=== PATIENT | female | born 1940 | race Caucasian/White ===

== ENCOUNTER 2018-04-27 17:22 | Inpatient (IN) ==
[2018-04-27] MEDS ORDERED: ATIVAN IV ONE (17:32)
[2018-04-27] MEDS ORDERED: NEOSPORIN OINTMENT PACKET TOP ONE (17:32)
[2018-04-27] MEDS ORDERED: HALDOL IV ONE (17:32)
--- NOTE | 2018-04-27 17:57 | Diag Imaging Result Doc PS360 ---
EXAM: CT HEAD W/O CONTRAST INDICATION: AMS, dementia TECHNIQUE: This exam was performed using automated exposure control, adjustment of mA or kV according to patient size, and/or use of iterative reconstruction technique. COMPARISON: 03/31/2018 FINDINGS: There is suggestion of mild to moderate periventricular white matter microangiopathy, stable. There is a small low dense focus at the posterior parietal lobe cortex on the left that can be seen on image 30 of series 2. This is not clearly identified previously. A focal subacute or late acute infarct cannot be excluded. Please correlate clinically. There is no discrete intracranial mass, mass effect, or intracranial hemorrhage. The surrounding soft tissues and bony structures are essentially unremarkable. IMPRESSION: Small focus of low attenuation involving the posterior parietal lobe on the left that is not clearly identified previously and could represent a late acute or subacute focal infarct. Electronically signed by Seven Spivey 04/27/2018 5:55 PM
[2018-04-27 18:23] LABS: ALLEN TEST YES; BE 4.9 mmoll (-3.0-3.0); BLOOD TYPE ARTERIAL; HCO3-(ACT) 28.7 mmoll (20.0-26.0); METHB 1.3 % (0.0-1.5); MODALITY CANNULA; O2(CT) 16.1 mL/dL (15.0-23.0); O2HB 96.3 % (95.0-99.0); PCO2(98.6) 41 mmHg (35-45); PO2(98.6) 127 mmHg (60-100); SAMPLE BLOOD; SAO2 99.3 % (95.0-100.0); THB 11.7 g/dL (11.5-17.4); pH(98.6) 7.46 (7.35-7.45)
[2018-04-27] MEDS ORDERED: APRESOLINE IV ONE (18:40)
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
[2018-04-27 19:11] LABS: BASO# 0.02 X1000 (0.0-0.2); BASO% 0.2 % (0.0-0.8); EOS# 0.14 X1000 (0.0-0.7); EOS% 1.4 % (0.0-10.0); HEMATOCRIT 36.9 % (37.0-47.0); IMM GRAN# 0.02 X1000 (0.0-0.04); IMM GRAN% 0.2 % (0.0-0.5); LYMPH# 2.25 X1000 (1.2-3.4); LYMPH% 21.8 % (20.5-51.1); MCH 28.2 PG (27-31); MCHC 32.5 g/dL (33-37); MCV 86.6 FL (81-99); MONO# 0.72 X1000 (0.11-0.59); MPV 9.6 FL (7.4-10.4); NEUT# 7.17 X1000 (1.4-6.5); NEUT% 69.4 % (42.2-75.2); PLT 237 X1000 (130-400); RBC 4.26 XMIL (4.2-5.4); RDW 14.5 % (11.5-14.5); WBC 10.32 X1000 (4.8-10.8)
[2018-04-27 19:20] LABS: INR 0.96; PROTIME 13.5 Seconds (11.0-16.0)
[2018-04-27 19:21] LABS: PTT 28.1 Seconds (22.3-41.8)
[2018-04-27] MEDS: DUONEB (A & A) INH SCH ×2 (19:30→23:55)
[2018-04-27 19:32] LABS: AGAP 10; ALB/GLOB RATIO 1.2; ALBUMIN 3.4 g/dL (3.5-5.0); ALKALINE PHOSPHATASE 113 U/L (32-104); BUN 11 mg/dL (8-22); CALCIUM 8.5 mg/dL (8.8-10.2); CHLORIDE 104 mmol/L (98-107); CK PROFILE 58 U/L (24-173); COSMO 282; CREATININE 0.7 mg/dL (0.5-0.9); ESTIMATED GFR > 60; GLUCOSE 94 mg/dL (70-104); GOT 21 U/L (10-30); GPT 13 U/L (10-36); MAGNESIUM 1.6 mg/dL (1.5-2.7); POTASSIUM 3.5 mmol/L (3.5-5.1); SODIUM 142 mmol/L (136-145); TCO2 28 mmol/L (25-35); TOTAL BILIRUBIN 0.42 mg/dL (0.20-1.00); TOTAL PROTEIN 6.3 g/dL (6.3-8.3)
--- NOTE | 2018-04-27 19:43 | Diag Imaging Result Doc PS360 ---
EXAM: CHEST-PORTABLE INDICATION: sob TECHNIQUE: One view COMPARISON: 03/31/2018 FINDINGS: There has been interval placement of a left-sided pacemaker in the expected position. There is mild biapical pleural scarring, stable. The lungs are grossly clear. There is no discrete pleural fluid collection or pneumothorax. The cardiomediastinal silhouette and central vasculature are grossly unremarkable. IMPRESSION: No evidence of acute pathology by plain radiograph. Electronically signed by Seven Spivey 04/27/2018 7:41 PM
--- NOTE | 2018-04-27 19:45 | Diag Imaging Result Doc PS360 ---
EXAM: FOOT COMPLETE LEFT INDICATION: injury TECHNIQUE: 3 views COMPARISON: None. FINDINGS: There is no discrete fracture, dislocation, or significant intrinsic osseous lesion. The visualized joint spaces are essentially unremarkable. There is suggestion of mild soft tissue edema at the dorsum of the foot. IMPRESSION: Likely mild soft tissue edema but no evidence of acute osseous abnormality. Electronically signed by Seven Spivey 04/27/2018 7:43 PM
[2018-04-27 19:47] LABS: URINE SOURCE CATH
[2018-04-27 19:49] LABS: BILIRUBIN URINE NEGATIVE (NEGATIVE); BLOOD URINE NEGATIVE (NEGATIVE); COLOR YELLOW; GLUCOSE URINE NEGATIVE (NEGATIVE); KETONE URINE NEGATIVE (NEGATIVE); LEUKOCYTES URINE NEGATIVE (NEGATIVE); NITRITE URINE NEGATIVE (NEGATIVE); PH URINE 6.5; PROTEIN URINE TRACE mg/dL (NEGATIVE); SP GRAVITY URINE 1.019; TURBIDITY URINE CLEAR (CLEAR); UROBILINOGEN URINE NORMAL (NORMAL)
[2018-04-27 19:51] LABS: UR EPITHELIAL CELLS <10 /HPF (<10); URINE BACTERIA NEGATIVE /HPF; URINE RBC <10 /HPF (<10); URINE WBC <10 /HPF (<10)
[2018-04-27 19:54] LABS: URINE CRYSTALS NONE SEEN
[2018-04-27] MEDS ORDERED: CELEXA PO SCH (21:00)
[2018-04-27] MEDS ORDERED: REMERON PO SCH (21:00)
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
[2018-04-27] MEDS: COZAAR PO SCH (23:09)
[2018-04-28] MEDS: DUONEB (A & A) INH SCH ×6 (03:05→23:00)
--- NOTE | 2018-04-28 08:21 | EKG Report ---
Test Performed on : 04/27/2018 7:55:57 PM Test Reason : sob Blood Pressure : / mmHG Vent. Rate : 089 BPM Atrial Rate : 089 BPM P-R Int : 142 ms QRS Dur : 060 ms QT Int : 398 ms P-R-T Axes : 065 -43 -20 degrees QTc Int : 484 ms Sinus rhythm. with occasional ventricular-paced complexes and with frequent premature ventricular com plexes. Left axis deviation Inferior infarct , age undetermined Abnormal ECG When compared with ECG of 03-APR-2018 07:12, Electronic ventricular pacemaker has replaced Sinus rhythm. Vent. rate has increased BY 39 BPM Unconfirmed Result
[2018-04-28] MEDS ORDERED: PATIENT'S OWN MED PO SCH (09:00)
[2018-04-28] MEDS ORDERED: ARICEPT PO SCH (09:00)
[2018-04-28] MEDS ORDERED: LASIX PO SCH (09:00)
[2018-04-28] MEDS ORDERED: KLOR-CON PO SCH (09:00)
--- NOTE | 2018-04-28 09:25 | PROGRESS NOTE ---
DATE: 04/28/2018 SUBJECTIVE: Ms. Wiggins was admitted with altered mental status yesterday. Her vital signs are stable. She has mild COPD, has dementia. There is a possibility of stroke. She has coronary artery disease, has been a smoker, and has a history of COPD. She has been very confused, and there is no one to take care of her at home as the daughter who used to take care of her is sick herself and has been having mental problems. We will try to find fdc placement for her. She was seen by [facility] at home yesterday, and then was transferred to the emergency room. cc: Adal Nguyen MD
[2018-04-28] MEDS: COZAAR PO SCH ×2 (09:47→17:46)
--- NOTE | 2018-04-28 14:28 | CONSULTATION ---
DATE OF CONSULTATION: 04/28/2018 HISTORY: Ms. Wiggins is 77 years old, and there is reported baseline dementia, possibly recent increased confusion and imaging findings raising question of recent cerebral infarction. History from the patient, review of hospital record, and from daughter at the bedside is that she has not had previous stroke diagnosed. She was not aware of any recent sudden focal neurologic deficit. She has felt unsteady with gait and some days seems more confused than others. She has not noticed any sudden vision changes. She has not had headache. She has not had periods of altered awareness or unconsciousness. Daughter reports forgetfulness noticed about 5 years ago when patient moved here from [place]. Patient came here to take care of the patient's mother who was dealing with dementia. Mother is still alive in her mid 90s with dementia. There is possible other family history of dementia in several female relatives. There is not history of significant ethanol use or ethanol abuse. There is not history of illicit drug use. Daughter reports she supervises patient's medications and that medications come bubble packed. There is lorazepam 2 mg t.i.d. p.r.n. listed, and daughter reports the patient takes a dose of that "when she sees me take my lorazepam" which averages a few doses daily, according to daughter. Daughter reports she "lost the bottle," and patient has not had lorazepam in at least a few weeks. (Daughter reports she also ran out of own lorazepam supply.) Other medicines include escitalopram 10 mg daily, haloperidol 1 mg b.i.d., oxycodone scheduled t.i.d. for pain. Donepezil was added a year and a half or so ago. She is taking donepezil 10 mg daily now, and appears to tolerate that. She and daughter do not recall her taking memantine. Workup here includes noncontrast CT of the head which shows poorly defined lucency in the left posterior parietal cortex. This was not clearly apparent on prior scan. Computer record shows 12/03/2016 carotid ultrasound was unremarkable. She had previous echocardiogram which did not show source of embolus. Lab work this admission shows remarkably unremarkable chemistry profile. We do not have urine drug screen this admission. Urine drug screen in February of 2017 was positive for oxycodone, negative for benzodiazepines, and negative for all other. PHYSICAL EXAMINATION: On exam, Ms. Wiggins is awake, alert, and attentive. She seemed reasonable and appropriate during my time at the bedside. She seemed appropriately annoyed at times with daughter's interruptions. She was oriented to [place], [place], [facility]" and President Yuliana. She did not discuss recent news when asked. She could not tell me the correct month, day of the week, the day of the month or the correct year. Speech is not dysarthric. Language function is intact on bedside testing. Remote memory is fair. Head and neck are unremarkable. Visual guardado are full tested carefully by confrontational finger counting. Facial motility is little bit diminished bilaterally, but symmetric. Gag is intact. Tongue is midline. She can hear. Shoulder shrug is good bilaterally. Strength is normal in the arms and legs. Tone is symmetric in the limbs. She did well on [id number] testing bilaterally. She reports equal pinprick and light touch appreciation over the left and right hand and foot. Proprioception is good at the right 2nd finger PIP joint. I did not test her gait. Reflexes are 1+ at the right ankle, trace at the left ankle, 2+ at the right knee, trace at the left knee. Plantar response is silent bilaterally. IMPRESSION: 1. Longstanding cognitive impairment, probably dementia/major neurocognitive disorder. She has been tolerating donepezil for more than a year. We might consider increasing donepezil dose and/or adding memantine. Neither of those suggestions are urgent. 2. CT findings as noted. There is minor reflex asymmetry, but I cannot find a definite neurologic deficit to attribute to this finding. She might have had clinically silent ischemic infarction, or the CT findings may be artifact. We might consider brain MRI electively, not urgent. Alternatively, might repeat CT scan in several months, sooner if she has neurologic change. She has risk factors for cerebrovascular ischemic problems, but those are being addressed. In light of her baseline dementia and stable course with minimal to no neurologic deficit attributed to possible stroke, and with negative carotid a few years ago I do not think we need to do anything urgently in the way of workup . 3. She has several [employer] REPRESENTATIVE active medications on board. Based on daughter's inconsistent report, I am not certain how she takes her medicines. If she has been without benzodiazepine for a few weeks, we might consider continuing without that. Thanks for asking Neurology to see Ms. Wiggins. cc: MD Adal Baptiste III, MD MTDD
[2018-04-28] MEDS: NORCO-10 PO PRN (17:36)
[2018-04-28] MEDS: LASIX PO SCH (17:44)
[2018-04-28] MEDS: KLOR-CON PO SCH (17:45)
[2018-04-28] MEDS: REMERON PO SCH (21:37)
[2018-04-29] MEDS: DUONEB (A & A) INH SCH ×6 (03:05→22:51)
[2018-04-29 07:35] LABS: AGAP 12; BUN 17 mg/dL (8-22); CALCIUM 8.5 mg/dL (8.8-10.2); CHLORIDE 103 mmol/L (98-107); COSMO 290; CREATININE 0.8 mg/dL (0.5-0.9); ESTIMATED GFR > 60; GLUCOSE 87 mg/dL (70-104); POTASSIUM 3.3 mmol/L (3.5-5.1); SODIUM 145 mmol/L (136-145); TCO2 30 mmol/L (25-35)
[2018-04-29] MEDS: KLOR-CON PO SCH (08:40)
[2018-04-29] MEDS: MOBIC PO SCH (08:40)
[2018-04-29] MEDS: CALTRATE 600 + D PO SCH (08:41)
[2018-04-29] MEDS: LASIX PO SCH (08:41)
[2018-04-29] MEDS: COZAAR PO SCH (08:42)
[2018-04-29] MEDS: FORTICAL NAS SCH (08:47)
[2018-04-29] MEDS: NORCO-10 PO PRN (08:59)
--- NOTE | 2018-04-29 09:32 | PROGRESS NOTE ---
DATE: 04/29/2018 SUBJECTIVE: Ms. Wiggins's potassium is 3.3. She is on supplemental potassium. We will repeat the electrolytes in the morning. She should ideally go to rehab. However, the daughter is insisting on taking her home, and patient also wants to go home. She is even ready to sign out against medical advice. However, she has decided now that she will stay here till tomorrow as the potassium is low. We will continue the current management. Neurology consult has been obtained. I read the note that she can be without the lorazepam. However, the family is having fits if we stops the lorazepam. We will in the meantime continue it. cc: Adal Nguyen MD MTDD
--- NOTE | 2018-04-29 11:10 | PROGRESS NOTE ---
DATE: 04/29/2018 Ms. Wiggins seems a little bit more withdrawn today but not agitated and not any more confused than what I saw yesterday. She had some appropriate conversation with me. Daughter provides some additional history today, which may or may not be accurate. She reports patient has been followed for Neurology by Dr. Lindsey in [place]. She believes the patient may have had brain MRI in recent months. With question of left parietal infarct raised on recent CT, we discussed options including repeat noncontrast CT, contrast CT versus brain MRI. Daughter reports patient would have trouble tolerating conventional MRI scanner and believes outpatient visit to an "open" scanner would be preferable.. I do not think further imaging is urgent. I will defer to Dr. Nguyen. Thanks for asking neurology to see Ms. Wiggins. cc: MD Adal Baptiste III, MD [facility] CENTERAugusto
[2018-04-29] MEDS: TYLENOL PO PRN (21:10)
[2018-04-29] MEDS: REMERON PO SCH (21:10)
[2018-04-30] MEDS: DUONEB (A & A) INH SCH ×6 (02:55→23:37)
[2018-04-30 07:31] LABS: AGAP 11; BUN 20 mg/dL (8-22); CALCIUM 8.1 mg/dL (8.8-10.2); CHLORIDE 103 mmol/L (98-107); COSMO 287; CREATININE 0.7 mg/dL (0.5-0.9); ESTIMATED GFR > 60; GLUCOSE 86 mg/dL (70-104); POTASSIUM 3.6 mmol/L (3.5-5.1); SODIUM 143 mmol/L (136-145); TCO2 29 mmol/L (25-35)
[2018-04-30] MEDS: MOBIC PO SCH (08:51)
[2018-04-30] MEDS: LASIX PO SCH (08:52)
[2018-04-30] MEDS: COZAAR PO SCH (08:52)
[2018-04-30] MEDS: CALTRATE 600 + D PO SCH (08:52)
[2018-04-30] MEDS: KLOR-CON PO SCH (08:52)
[2018-04-30] MEDS: FORTICAL NAS SCH (08:52)
--- NOTE | 2018-04-30 10:16 | PROGRESS NOTE ---
DATE: 04/30/2018 Ms. Wiggins is awake, alert, and attentive. She answered questions appropriately. She continues disoriented. She did not have any specific complaints for me today. I do not have any new thoughts or new suggestions from Neurology standpoint. Would consider followup imaging when practical, not urgent with question of recent left parietal infarction. I would continue donepezil 10 mg daily, and consider adding memantine electively. Thanks for asking Neurology to see Ms. Wiggins. cc: MD Adal Baptiste III, MD
--- NOTE | 2018-04-30 11:30 | PROGRESS NOTE ---
DATE: 04/30/2018 SUBJECTIVE: Ms. Wiggins is feeling somewhat better. She had a questionable stroke which can be evaluated later on. She was seen by Dr. Morin also. The family wants possibly an open MRI at a later date. The sodium is 143, potassium is 3.6 now. She wants to go home. [facility] is involved here and I am going to get a release from [facility] before I discharge her. I personally feel like she should go to a rehab for the time being. However, she is refusing for the rehab. We will get a consult with physical therapy on her. cc: Adal Nguyen MD
--- NOTE | 2018-04-30 12:58 | Carotid Study ---
DATE: 04/28/2018 PROCEDURE: Carotid duplex imaging. REFERRING PHYSICIAN: Dr. Crockett INTERPRETING PHYSICIAN: Dr. Paris TECH: [place] INDICATIONS: CVA. EXAM FOR COMPARISON: 12/03/2016 OBSERVED DATA RIGHT LEFT Brachial Blood Pressure Carotid Pulse Bruits: Carotid/Sub DIAGRAM OF ULTRASOUND IMAGING R L RIGHT INT EXT INT EXT LEFT Toby (cm/s) Toby (cm/s) Subclavian 68/0 Subclavian 88/10 CCA Proximal 48/8 CCA Proximal 60/10 CCA Distal 52/12 CCA Distal 60/13 Bulb 46/11 Bulb 46/11 ICA Proximal 33/7 ICA Proximal 45/11 ICA Mid 53/13 ICA Mid 83/20 ICA Distal 95/22 ICA Distal 66/14 ECA 91/4 ECA 109/10 Vertebral 93/28 A Vertebral 80/27 A ICA/CCA Ratio 1.83 ICA/CCA Ratio 1.37 % Stenosis % Stenosis FINDINGS: There are mild atherosclerotic changes noted in the bilateral carotid artery bulbs and proximal internal carotid arteries. The peak systolic velocities in each location would correlate to a 0% to 39% stenosis; however, the ICA to CCA ratio on the right would be elevated to a 1.83 which would correlate to a severe stenosis. However, based off the morphology of this plaque, I doubt that it is this severe. PHYSICIAN INTERPRETATION: When compared to previous mild atherosclerotic changes noted with similar velocities from prior study. cc: MD Holden Simons Jr, MD Amit V. Vora, MD
[2018-04-30] MEDS: NORCO-10 PO PRN (20:18)
[2018-04-30] MEDS: ATIVAN PO PRN (20:18)
[2018-04-30] MEDS: REMERON PO SCH (20:18)
[2018-05-01] MEDS: DUONEB (A & A) INH SCH ×6 (03:16→22:46)
[2018-05-01 07:05] LABS: CALCIUM 8.6 mg/dL (8.8-10.2); POTASSIUM 3.7 mmol/L (3.5-5.1)
[2018-05-01] MEDS: FORTICAL NAS SCH (09:09)
[2018-05-01] MEDS: LASIX PO SCH (09:09)
[2018-05-01] MEDS: COZAAR PO SCH (09:09)
[2018-05-01] MEDS: KLOR-CON PO SCH (09:09)
[2018-05-01] MEDS: MOBIC PO SCH (09:09)
[2018-05-01] MEDS: CALTRATE 600 + D PO SCH (09:10)
[2018-05-01] MEDS: ATIVAN PO PRN ×2 (12:41→21:03)
[2018-05-01] MEDS: NORCO-10 PO PRN ×2 (12:41→21:03)
--- NOTE | 2018-05-01 12:42 | PROGRESS NOTE ---
DATE: 05/01/2018 Ms. Wiggins's electrolytes are normal. She is still having some dehydration. She has a history of altered mental status, and her CT scan showed possible stroke. I personally feel like she needs to go to rehab. However, the patient is opposing that. [facility] is involved, and I really want to get an okay from [facility] to get her discharged home. The patient, herself, cannot sign out because of her mental status, but we will check with the social service assistant as the patient is insisting on going home. cc: Adal Nguyen MD
[2018-05-01] MEDS: REMERON PO SCH (21:03)
[2018-05-02] MEDS: ZOFRAN PO PRN (01:18)
[2018-05-02] MEDS: DUONEB (A & A) INH SCH ×6 (03:23→23:39)
[2018-05-02] MEDS: COZAAR PO SCH (09:32)
[2018-05-02] MEDS: FORTICAL NAS SCH (09:32)
[2018-05-02] MEDS: NORCO-10 PO PRN ×2 (09:32→20:13)
[2018-05-02] MEDS: ATIVAN PO PRN ×2 (09:32→20:13)
[2018-05-02] MEDS: MOBIC PO SCH (09:33)
[2018-05-02] MEDS: LASIX PO SCH (09:33)
[2018-05-02] MEDS: CALTRATE 600 + D PO SCH (09:33)
[2018-05-02] MEDS: KLOR-CON PO SCH (09:33)
--- NOTE | 2018-05-02 11:45 | PROGRESS NOTE ---
DATE: 05/02/2018 SUBJECTIVE: Ms. Wiggins has some dehydration with elevated BUN. She appears to be more alert. However, she has periods of severe confusion. CT scan showed possibility of a stroke. MRI probably is needed to disprove that. Her vital signs are stable. We will continue to watch her here. She is admitted through [facility] here, and I personally feel like she needs to go to the rehab. cc: Adal Nguyen MD
[2018-05-02] MEDS: REMERON PO SCH (20:13)
[2018-05-03] MEDS: DUONEB (A & A) INH SCH ×5 (03:33→20:30)
--- NOTE | 2018-05-03 09:13 | PROGRESS NOTE ---
DATE: 05/03/2018 SUBJECTIVE: Ms. Wiggins wants to go home. However, she probably had a light stroke. She has disorientation at times. 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 We are asking for her to go to the rehab right now. Moreover, she is under the court order from [facility], and she cannot be by herself at home or with her daughter. cc: Adal Nguyen MD
[2018-05-03] MEDS: CALTRATE 600 + D PO SCH (09:43)
[2018-05-03] MEDS: COZAAR PO SCH (09:43)
[2018-05-03] MEDS: MOBIC PO SCH (09:43)
[2018-05-03] MEDS: KLOR-CON PO SCH (09:43)
[2018-05-03] MEDS: LASIX PO SCH (09:43)
[2018-05-03] MEDS: FORTICAL NAS SCH (09:46)
[2018-05-03] MEDS: ZOFRAN PO PRN (17:30)
[2018-05-03] MEDS ORDERED: ZOFRAN IV ONE (21:56)
[2018-05-03] MEDS ORDERED: SODIUM CHLORIDE 0.9% INJ SCH (22:00)
[2018-05-03] MEDS ORDERED: PROTONIX IV SCH (22:00)
[2018-05-04] MEDS: REMERON PO SCH ×2 (01:37→23:18)
[2018-05-04] MEDS: TYLENOL PO PRN ×2 (01:38→23:18)
[2018-05-04] MEDS: ATIVAN PO PRN ×3 (01:38→23:18)
[2018-05-04] MEDS: DUONEB (A & A) INH SCH ×6 (03:54→20:03)
[2018-05-04] MEDS: FORTICAL NAS SCH (08:53)
[2018-05-04] MEDS: MOBIC PO SCH (08:54)
[2018-05-04] MEDS: KLOR-CON PO SCH (08:54)
[2018-05-04] MEDS: COZAAR PO SCH (08:54)
[2018-05-04] MEDS: LASIX PO SCH (08:54)
[2018-05-04] MEDS: CALTRATE 600 + D PO SCH (08:54)
--- NOTE | 2018-05-04 09:03 | PROGRESS NOTE ---
DATE: 05/04/2018 SUBJECTIVE: Ms. Wiggins is much more alert. She has been going to the bathroom. She has some severe dyspepsia. She is getting IV Protonix, which was changed to by mouth. Overall condition is improved. There are periods of disorientation that she gets. We will continue with the current management on her, and we are waiting for a rehab bed with [facility]. The patient actually wants to go home. However, [facility] has evaluated the home conditions, and they want something else done, which I agree with that. She probably had a light stroke also. cc: Adal Nguyen MD
[2018-05-04] MEDS: ZOFRAN PO PRN (23:17)
[2018-05-05] MEDS: DUONEB (A & A) INH SCH ×3 (00:13→07:52)
[2018-05-05] MEDS ORDERED: PRILOSEC PO SCH (07:00)
--- NOTE | 2018-05-05 09:30 | PROGRESS NOTE ---
DATE: 05/05/2018 Ms. Wiggins appears to be disoriented at times. She is refusing to go to the half-way. However, she has a [facility] order to go and there is a bed at [facility] where we will transfer her today. cc: Adal Nguyen MD
--- NOTE | 2018-05-05 09:53 | DISCHARGE SUMMARY ---
ADMISSION DATE: 04/27/2018 DISCHARGE DATE: 05/05/2018 HISTORY OF PRESENT ILLNESS: Ms. Wiggins, who is a 77-year-old white female, was admitted with altered mental status. She was found very confused and disoriented by [facility], and according to them, the way she was being treated at home was not right, and they wanted her evaluated in the emergency room. She came to [facility] Emergency Room. IMAGING IN HOSPITAL: CT scan of the brain revealed a small focus of low attenuation involving the posterior parietal lobe on the left side. This appeared like stroke. Further investigation with MRI or CTA was needed. However, it was not urgent. The patient was also very combative and confused since it was not done at that particular time, which can be done later on. For the current time, it appears like she has a CVA. She has a history of intermittent mental confusion, and x-ray of the foot revealed soft tissue swelling without any osseous abnormality. Carotid Doppler studies revealed mild atherosclerosis, otherwise no definite plaque was noted. LABORATORY DATA: CBC was unremarkable. INR was 0.96. Blood gases were unremarkable. Chemistry profile was normal. BUN 26, creatinine 1.0 indicating mild dehydration. Urinalysis was negative. She has a history of heart attack and had a permanent pacemaker placed and has COPD, and she has intermittent confusion, has a diagnosis of early dementia. This could be vascular dementia as there is an evidence of possible stroke. She was evaluated here by Dr. Morin also. She is under the care of [facility] at the present time and under the court order, and she will be transferred to [facility] today. FINAL DIAGNOSES: 1. Early dementia. 2. Cerebrovascular accident. 3. Coronary artery disease. 4. Chronic obstructive pulmonary disease. 5. 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 6. Permanent pacemaker. I will follow her with at [facility]. cc: Adal Nguyen MD
[2018-05-05] MEDS: COZAAR PO SCH (10:13)
[2018-05-05] MEDS: MOBIC PO SCH (10:13)
[2018-05-05] MEDS: ATIVAN PO PRN ×2 (10:14→16:12)
[2018-05-05] MEDS: LASIX PO SCH (10:14)
[2018-05-05] MEDS: CALTRATE 600 + D PO SCH (10:14)
[2018-05-05] MEDS: KLOR-CON PO SCH (10:14)
[2018-05-05] MEDS: FORTICAL NAS SCH (10:15)
[2018-05-05 15:32] VITALS: BP 124/56
== END 2018-05-05 18:53 | DRG 65 ==
LOC: EDBD → SUPCPDRO → ED 17:22 → EDIPHOLD 20:11 → EDUNIT# 20:11 → 3N 22:37
PROVIDERS: ADMIT Internal Medicine; ATTEND Internal Medicine
CPT/HCPCS: 51701; 70450; 71010; 71045; 73630; 80048; 80053; 80307; 80320; 81001; 82055; 82550; 82607; 82805; 82948; 83605; 83735; 83880; 84443; 84484; 85025; 85610; 85730; 87040; 93005; 93880; 94640; 94761; 97161; 99285; 99291; A9270; C9113; G0480; G6040; J2405; P9612; S0164; XXXXX